=== PATIENT | male | born 1980 | race Caucasian/White ===

== ENCOUNTER 2023-03-12 10:56 | Outpatient (CLI) | payer BC, SELFPAY | END 2023-03-12 10:57 | disposition home or self-care (01) | PROVIDERS: Visit Provider Family Medicine | DX: Z00.00 Encounter for general adult medical examination without abnormal findings (principal); R03.0 Elevated blood-pressure reading, without diagnosis of hypertension; R39.198 Other difficulties with micturition; Z12.5 Encounter for screening for malignant neoplasm of prostate; Z13.6 Encounter for screening for cardiovascular disorders; Z11.59 Encounter for screening for other viral diseases | CPT/HCPCS: 80053; 80061; 84153; 86803 ==

== ENCOUNTER 2024-06-17 09:59 | Outpatient (CLI) | payer BC, SELFPAY | END 2024-06-17 10:00 | disposition home or self-care (01) | PROVIDERS: PCP Family Medicine; Visit Provider Family Medicine | DX: Z00.00 Encounter for general adult medical examination without abnormal findings (principal); Z13.6 Encounter for screening for cardiovascular disorders | CPT/HCPCS: 80053; 80061 ==

== ENCOUNTER 2024-09-16 07:11 | Outpatient (CLI) | payer BC, SELFPAY ==
--- NOTE | 2024-09-16 08:30 | W.ANESCHARGE ---
Anesthesia Charges Start Date/Time Anesthesia Start Date: 09/16/24 Anesthesia Start Time: 08:01 Stop Date/Time Anesthesia Stop Date: 09/16/24 Anesthesia Stop Time: 08:
--- NOTE | 2024-09-16 10:02 | W.ANESCHARGE ---
Anesthesia Charges Start Date/Time Anesthesia Start Date: 09/16/24 Anesthesia Start Time: 08:01 Stop Date/Time Anesthesia Stop Date: 09/16/24 Anesthesia Stop Time: 08:
== END 2024-09-16 07:12 | disposition home or self-care (01) ==
LOC: OP CLINIC 07:11
PROVIDERS: PCP Family Medicine; Visit Provider Surgery
DX: Z12.11 Encounter for screening for malignant neoplasm of colon (principal); Z83.719 Family history of colon polyps, unspecified
CPT/HCPCS: 00811; 00812; 45378; J2704